=== PATIENT | female | born 2000 | race Caucasian/White ===

== ENCOUNTER 2022-02-20 14:44 | Inpatient (IN) | payer MEDICAID, OTHER ==
[~2022-02-20] VITALS: Ht 162.6 cm; Wt 83.0 kg
[2022-02-20] MEDS ORDERED: OXYTOCIN/0.9 % SODIUM CHLORIDE 1,000 ML IV SCH ×2 (16:30→18:45)
[2022-02-20] MEDS ORDERED: LR 1,000 ML IV ONE (16:30)
[2022-02-20] MEDS ORDERED: LR 1,000 ML IV SCH (16:30)
[2022-02-20] MEDS ORDERED: TERBUTALINE SULFATE 1 MG/ML VIAL SUBCUT ONE (16:30)
[2022-02-20 16:36] VITALS: BP_SYST 114
[2022-02-20 16:52] LABS: BASOPHILS % (AUTO) 0.4 % (0.0-2.0); EOSINOPHILS # (AUTO) 0.1 K/uL (0.0-0.4); EOSINOPHILS % (AUTO) 1.4 % (0.0-4.0); HEMATOCRIT 34.3 % (36-48); HEMOGLOBIN 12.2 g/dL (12.0-16.0); LYMPHOCYTES # (AUTO) 2.3 K/uL (1.0-5.5); LYMPHOCYTES % (AUTO) 23.8 % (20.5-51.5); MEAN CORPUSCULAR HEMOGLOBIN 33 pg (27-31); MEAN CORPUSCULAR HGB CONC 35 % (32-36); MEAN CORPUSCULAR VOLUME 93 fL (79.0-98.0); MONOCYTES # (AUTO) 0.6 K/uL (0.0-1.0); MONOCYTES % (AUTO) 6.4 % (1.7-9.3); NEUTROPHILS # (AUTO) 6.6 K/uL (1.8-7.7); PLATELET COUNT (AUTO) 230 K/uL (130-430); RED BLOOD CELL COUNT(AUTO) 3.69 MIL/uL (4.2-6.2); RED CELL DISTRIBUTION WIDTH 14.7 % (9.0-15.0); WHITE BLOOD COUNT (AUTO) 9.7 K/uL (4.8-10.8)
[2022-02-20] MEDS ORDERED: DERMOPLAST SPRAY TP PRN (18:45)
[2022-02-20] MEDS ORDERED: LANOLIN 7 GM OINT. TP PRN (18:45)
[2022-02-20] MEDS ORDERED: MEASLES,MUMPS&RUBELLA VACC/PF 12500 UNIT/0.5 ML VIAL SUBQ PRN (18:45)
[2022-02-20] MEDS ORDERED: WITCH HAZEL LEAF 1 MED.PAD MED.PAD TP PRN (18:45)
[2022-02-20] MEDS ORDERED: OXYTOCIN/0.9 % SODIUM CHLORIDE 1,000 ML IV ONE (18:45)
[2022-02-20] MEDS ORDERED: TEMAZEPAM 15 MG CAPSULE PO PRN (18:45)
[2022-02-20] MEDS ORDERED: RHO(D) IMMUNE GLOBULIN/MALTOSE 1500 UNITS/1.3 ML (WINHRO) IM PRN (18:45)
[2022-02-20] MEDS ORDERED: HYDROCORTISONE 0.5% CREAM 28.4 GM CREAM.GM. TP PRN (18:45)
[2022-02-20] MEDS ORDERED: ANUSOL 1 EA SUPP.RECT (PREPARATION H) RC PRN (18:45)
[2022-02-20] MEDS ORDERED: DIPH-TET-PERTUS Vaccine 0.5 ML VIAL (ADACEL) I.M. PRN (18:45)
[2022-02-20] MEDS: SENNOSIDES/DOCUSATE SODIUM 1 TAB TABLET(SENOKOT-S) PO SCH (21:01)
[2022-02-21] MEDS: IBUPROFEN 600 MG TABLET PO SCH ×5 (00:07→23:24)
[2022-02-21 06:52] LABS: HEMATOCRIT 32.4 % (36-48)
[2022-02-21] MEDS: DOCUSATE SODIUM 100 MG CAPSULE PO SCH (09:55)
[2022-02-21] MEDS: SENNOSIDES/DOCUSATE SODIUM 1 TAB TABLET(SENOKOT-S) PO SCH (20:30)
[2022-02-22] MEDS: IBUPROFEN 600 MG TABLET PO SCH (05:52)
[2022-02-22] MEDS ORDERED: OXYCODONE/ACETAMINOPHEN 5-325 TABLET PO PRN ×2 (08:45)
[2022-02-22] MEDS ORDERED: HYDROcodone/ACETAMIN 5-325 MG TAB (NORCO/ VICODIN) PO PRN (08:45)
[2022-02-22] MEDS: DOCUSATE SODIUM 100 MG CAPSULE PO SCH (09:34)
== END 2022-02-22 10:30 | disposition home or self-care (01) | DRG 560 ==
LOC: SPU 14:44 → OBSVTOIN 14:44
PROVIDERS: ADMIT Obstetrics & Gynecology; ATTEND Obstetrics & Gynecology
PROC: 10E0XZZ Delivery of Products of Conception, External Approach (ICD-10-PCS; principal; 2022-02-20)
DX: O62.3 Precipitate labor (principal); Z37.0 Single live birth; O69.81X0 Labor and delivery complicated by cord around neck, without compression, not applicable or unspecified; O77.0 Labor and delivery complicated by meconium in amniotic fluid; Z3A.39 39 weeks gestation of pregnancy
CPT/HCPCS: 36415; 81002; 85018; 85025; 86592; 86886; 86900; 86901; J2590